=== PATIENT | female | born 1940 | race Caucasian/White ===

== ENCOUNTER 2018-08-04 03:38 | Inpatient (IN) | payer OTHER ==
[~2018-08-04] VITALS: Ht 160 cm; Wt 95.3 kg
[~2018-08-04 03:38] MED LIST: CITRACAL + D M1 EACH PO; COUMADIN2.5 M1 PO; DYAZIDE 37.5-21 EACH PO; ESTER-C 1,0001 EACH; FERROUS SULFAT325 M3 PO; FLONASE ALLERG9.9 ML; GAS RELIEF80 M1; KRILL OIL500 MG; LOSARTAN POTAS100 M1 PO; MULTIVITAMINS1 EAC9 PO; OMEPRAZOLE20 M2 PO; PERCOCET 5-3251 EACH PO; PRESERVISION A1 EAC1; RANITIDINE HCL150 MG PO; SYNTHROID150 MCG PO; VITAMIN D31000 UNI2 PO
--- NOTE | 2018-08-04 09:31 | Operative Report ---
Operative/Inv Procedure Report Surgery Date: 08/04/18 Name of Procedure: Left total knee arthroplasty Pre-Operative Diagnosis: Left knee primary osteoarthritis Post-Operative Diagnosis: Same Estimated Blood Loss: less than 50ml Surgeon/Traffic Representative: Sang GRAFF,Celestino Paniagua Anesthesia: block Implants: Marcus triathlon total knee system-size 5 femur, size 4 tibia, 11 mm cruciate retaining polyethylene, 31 patella Drains: None Specimens: Femoral, tibial, patellar bone Microbiology: Urine Tourniquet: 43 minutes Complications: None Condition: Stable Operative Indication: Patient is a 78-year-old woman with history of bilateral knee osteoarthritis. She has been treated conservatively for a long period of time. Unfortunately, her symptoms persistently increased to the point where they interfere with normal activities of daily living. Last year she underwent right total knee arthroplasty. She wished to proceed with total knee arthroplasty in the left. Risks benefits and expectations of the surgical procedure were discussed which included but were not limited to persistent knee pain, need for subsequent surgery, infection, DVT, injury to blood vessel or nerve, anesthesia risks Operative/Procedure Note Note: Patient was brought to the operating room and transferred to the operating table. Once under appropriate anesthesia the left lower extremity was prepped and draped in standard fashion. Preoperative IV antibiotics were given prophylactically. Leg was elevated exsanguinated tourniquet was inflated to 300 mm of pressure. A standard anterior incision was made for anticipated medial parapatellar approach to the knee. The incision was taken down sharply to the underlying retinaculum. A medial retinacular approach was used with a minimal extension to the quadricep tendon. Osteophytes were excised from the distal femur. Portion of the fat pad was excised. Dissection was taken around the medial corner of the knee to balance ligaments. Retractors were placed and the knee was flexed while the patella was subluxed. Used the drill to enter the intramedullary canal of distal femur for the intramedullary guide for the distal femoral cut. The cut was made at a 6 valgus orientation. Cut was made while protecting the soft tissues. The femur was then sized to a size 5. Size 5 cutting jig was pinned in place and the for bone cuts were made. I then turned my attention to the tibia. Remnants of the degenerative medial lateral meniscal tissues were excised. PCL was recessed for balancing purposes. I then placed the external tibial alignment guide in place to pin the cutting block in a neutral position from medial to lateral and reproducing patient's posterior slope based on preoperative templating and intraoperative measurements. Cutting block was pinned in place and the retractors were placed to protect the soft tissues medially laterally and posteriorly. The cut was made. I size a 4 tibia to a size 4. Trial reduction was done I was satisfied with the soft tissue balancing and the sizing of the components. I then prepared the patella by measuring cutting the appropriate thickness and replacing it with a size 31 patella. 3 lug holes were drilled as medially as possible. I then marked my rotation of the tibia and drilled my 2 lug holes for the femur. All trial and rotation was removed. I then finished preparation of the tibia with the tibial punch. Cement was being mixed on the back table as the knee was copiously irrigated and dried. The anterior chamfer bone of the distal femur was used to plug the intramedullary hole to minimize postoperative hemarthrosis and swelling. Once the cement was ready was applied to the dry clean bony surface of the tibia. The size 4 tibia was impacted in place and excess cement was removed with curette. Cement was applied to the dry clean bony surfaces of the distal femur and the size 5 femur was impacted in place and excess cement was removed with curette. The trial polyethylene was inserted which was an 11 mm polyethylene. The knee was taken out to full extension. Cement was applied to the dry clean bony surfaces of the patella. The size 31 patella was impacted in place and excess cement was removed with a knife. Once the cement hardened to the knee through range of motion. Small pieces of excess cement removed from the trochlear notch. I was satisfied with the stability with 11 mm. Full extension. Excellent mid flexion stability and full flexion to gravity. The patellofemoral tracking would be determined later after the tourniquet was deflated but it appeared to be very good prior to the tourniquet deflation. Copious irrigation followed. I was satisfied with 11 mm polyethylene and therefore a removed the trial component and copiously irrigated the tibial tray. I made sure there was no remaining soft tissue, bone fragments or cement fragments within the tibial tray and then impacted the definitive size 11 mm cruciate retaining polyethylene in place. The locking mechanism was confirmed. Again the knee was taken through a range of motion. The tourniquet was deflated after some irrigation. Again I was satisfied with the patellofemoral tracking. Hemostasis was obtained. I then closed the medial retinacular incision with a minimal extension of the quadricep tendon with interrupted #1 Vicryl sutures. Subcu tissues closed in 2 layers with 2-0 Vicryl and skin was closed with a running 3-0 Vicryl suture with the knee in flexion. Appropriate dressings were applied and patient was awakened and taken to recovery room in good condition. No intraoperative complications. Blood loss was less than 50 cc Discharge Disposition: PACU
[2018-08-04 12:00] VITALS: BP 130/80
--- NOTE | 2018-08-04 13:37 | PN- Orthopedic ---
Subjective Subjective: POC feeling well, in chair, lisset diet, no n/v/cp/sob. +uo via kauffman. pain well controlled Objective Vital Signs and I&Os Vital Signs Date Time Temp Pulse Resp B/P B/P Pulse O2 O2 Flow FiO2 Mean Ox Delivery Rate 08/04 1200 94.6 54 18 130/80 98 Room Air Physical Exam: GEN- NAD CARD- S1S2 PULM- CTAB ABD-soft nt EXT- feet warm, palp pedal pulses. lle dressed in feliberto- cdi, ice in place, calves soft nt, alps on. Assessment/Plan Assessment/Plan A- POD0 sp L TKR, stable w minimal postop pain P- PT, WBAT anticoagulation: coum 5 tonight, then per INR alps am labs diet as tolerated home meds prn pain meds dc kauffman in am dc planning Core Measures Venous Thromboembolism VTE Risk Factors Surgery No Mechanical VTE Prophylaxis d/t N/A MechProphylax Ordered No VTE Pharm Prophylaxis d/t NA PharmProphylax ordered
[2018-08-04 15:11] VITALS: BP 136/66
[2018-08-04 16:53] VITALS: BP 142/72
[2018-08-04 20:00] VITALS: BP 140/70
[2018-08-04 21:46] LABS: PTT 29 SEC (25-37)
[2018-08-05] VITALS: BP 138/68
[2018-08-05 03:57] VITALS: BP 142/78
--- NOTE | 2018-08-05 07:54 | PN- Orthopedic ---
See Addendum Subjective Subjective: No events overnight. Patient feeling well this am. Admits to minimal left knee pain, has not required pain medication. Tolerating her diet without nausea or emesis. Denies any chest pain or SOB. OOB with PT yesterday and ambulated the hallway. Denies any numbness or tingling. Denies any locking or grinding sensation. Objective Vital Signs and I&Os Vital Signs Date Time Temp Pulse Resp B/P B/P Pulse O2 O2 Flow FiO2 Mean Ox Delivery Rate 08/05 0357 98.7 70 20 142/78 96 Room Air 08/05 0000 97.8 69 20 138/68 96 Room Air 08/04 2000 97.8 63 16 140/70 93 08/04 1653 97.5 68 16 142/72 95 08/04 1511 95.0 64 18 136/66 95 08/04 1200 94.6 54 18 130/80 98 Room Air Intake & Output 08/05 0800 08/05 0000 08/04 1600 08/04 0800 08/04 0000 08/03 1600 Intake Total 892 690 5907.5 Output Total 1000 1025 400 Balance -200 -525 837.5 Intake, IV 600 300 637.5 Intake, Oral 200 200 600 Output, Urine 1000 1025 400 Patient 210 lb 199 lb Weight Weight Reported by Patient Measurement Method Physical Exam: Afebrile, VSS. General: Sitting in chair in NAD. Cardiac: RRR Pulmonary: CTAB LLE: Dressing c/d/i. No drainage noted. Motor and sensation grossly intact. Able to dorsiflex/plantarflex. No calf tenderness, negative Sandy's. Assessment/Plan Assessment/Plan A/P: 78 y/o female PO D # 1 s/p L TKR. Stable post operatively. - Continue diet as tolerated - Pain medication prn - [place] discontinued this am - monitor ability to void - Continue home medications - PT following - WBAT - DVT ppx - alps; Coumadin per INR - Follow up am labs - dc planning - will d/w Dr. Domínguez Core Measures Venous Thromboembolism VTE Risk Factors Surgery No Mechanical VTE Prophylaxis d/t N/A MechProphylax Ordered No VTE Pharm Prophylaxis d/t NA PharmProphylax ordered
[2018-08-05 07:55] VITALS: BP 118/74
[2018-08-05 08:15] LABS: PT 11.8 SEC (9.4-12.5)
[2018-08-05 08:20] LABS: ABSOLUTE BASOPHIL COUNT 0 /CUMM (0.0-0.2); ABSOLUTE EOSINOPHIL COUNT 0 /CUMM (0.0-0.7); ABSOLUTE GRANULOCYTE CT 4.9 /CUMM (1.4-6.5); ABSOLUTE LYMPH COUNT 1.1 /CUMM (1.2-3.4); ABSOLUTE MONOCYTE COUNT 0.8 /CUMM (0.10-0.60); BASOPHIL % 0.1 % (0.0-2.0); EOSINOPHIL % 0.2 % (0-5); GRANULOCYTE % 71.7 % (42.2-75.2); HEMATOCRIT 32.3 % (37-47); MEAN CORPUSCULAR HGB 32.5 PG (27.0-31.0); MEAN CORPUSCULAR HGB CONC 34.1 G/DL (33.0-37.0); MEAN CORPUSCULAR VOLUME 95.3 FL (81.0-99.0); MEAN PLATELET VOLUME 9.5 FL (7.4-10.4); PLATELET COUNT 144 /CUMM (130-400); RBC DISTRIBUTION WIDTH 14.8 % (11.5-14.5); RED BLOOD CELL CT 3.39 /CUMM (4.20-5.40); WHITE BLOOD CELL COUNT 6.9 /CUMM (4.8-10.8)
[2018-08-05 15:47] VITALS: BP 118/68
[2018-08-05 22:58] VITALS: BP 106/70
[2018-08-06 06:30] VITALS: BP 132/80
[2018-08-06 08:37] LABS: PT 13.1 SEC (9.4-12.5)
--- NOTE | 2018-08-06 08:55 | PN- Orthopedic ---
See Addendum Subjective Subjective: Patient sitting in chair, had some left knee pain overnight. Pain well controlled this morning with oral medication. Denies paresthesias. Has been ambulating with physical therapy, worked on stairs yesterday. Tolerating diet, voiding, had bowel movement yesterdaY. Denies chest pain, shortness of breath, fever or headache. Objective Vital Signs and I&Os Vital Signs Date Time Temp Pulse Resp B/P B/P Pulse O2 O2 Flow FiO2 Mean Ox Delivery Rate 08/06 630 97.8 75 18 132/80 96 Room Air 08/05 2258 97.8 64 18 106/70 96 08/05 211 64 106/70 08/05 1547 97.6 62 20 118/68 97 Intake & Output 08/06 0000 08/05 0000 Intake Total 137 228 0564 800 500 Output Total 500 1300 819 875 0116 1025 Balance -500 -1000 -510 1370 -200 -525 Intake, IV 600 600 300 Intake, Oral 895 974 3229 200 200 Number 1 0 Bowel Movements Output, Urine 500 1300 583 911 3901 1025 Patient 210 lb Weight Physical Exam: General- NAD Resperations- clear bialaterlly Cardiac-regular rate and rhythm Abdomen-soft nontender with positive bowel sounds Extremities-incision clean and dry, no drainage, no signs of infection. Thigh is soft with no erythema, minimal tenderness around incision. Clean dressing applied. Calves are soft bilaterally and non-tenderness. Distal sensory and motor function is intact. 2+ dorsalis pedis pulse bilaterally Current Medications: Current Medications Sig/Teagan Start time Last Medication Dose Route Stop Time Status Admin Acetaminophen 650 MG Q4P PRN 08/05 2015 AC 08/05 PO 2110 Celecoxib 400 MG DAILY 08/05 900 AC 08/05 PO 0807 Dextrose/Lactated 1,000 ML Q13H 08/04 1245 DC 08/04 Ringer's IV 2341 Docusate Sodium 100 MG BID PRN 08/04 945 AC PO Famotidine 20 MG BID 08/04 2105 AC 08/05 PO 2109 Levothyroxine Sodium 0.15 MG DAILY AC 08/05 07 AC 08/06 PO 0528 Losartan Potassium 100 MG 2100 08/05 2100 AC 08/05 PO 2109 Losartan Potassium 100 MG DAILY 08/05 0900 DC PO Morphine Sulfate 2 MG Q3P PRN 08/04 1245 AC IV Omeprazole 20 MG DAILY AC 08/05 0700 AC 08/06 PO 0527 Ondansetron HCl 4 MG Q6P PRN 08/04 1245 AC IV Oxycodone/ 1 TAB Q4P PRN 08/04 1245 AC 08/06 Acetaminophen PO 0155 Oxycodone/ 2 TAB Q4P PRN 08/04 1245 AC Acetaminophen PO Polyethylene Glycol 17 GM DAILY PRN 08/04 0945 AC PO Senna/Docusate Sodium 2 TAB AT BEDTIME NEED.. 08/04 1245 AC PO Triamterene/HCTZ 1 CAP DAILY 08/05 0900 AC 08/05 PO 0807 Warfarin Sodium 7.5 MG COUMADIN 1700 ONE 08/05 1700 DC 08/05 PO 08/05 1701 1635 Results Last 48 Hours of Labs: Laboratory Tests 08/06 08/05 08/04 0605 0616 2045 Chemistry Sodium (137 - 145 mmol/L) 140 Potassium (3.5 - 5.1 mmol/L) 4.1 Chloride (98 - 107 mmol/L) 105 Carbon Dioxide (22 - 30 mmol/L) 26 Anion Gap (5 - 16) 8 BUN (7 - 17 mg/dL) 21 H Creatinine (0.5 - 1.0 mg/dL) 0.6 Estimated GFR (>60 ml/min) > 60 BUN/Creatinine Ratio (7 - 25 %) 35.0 H Coagulation PT (9.4 - 12.5 SEC) 13.1 H 11.8 12.0 INR (0.90 - 1.19) 1.20 H 1.08 1.10 APTT (25 - 37 SEC) 29 Hematology CBC w Diff NO MAN DIFF REQ WBC (4.8 - 10.8 /CUMM) 6.9 RBC (4.20 - 5.40 /CUMM) 3.39 L Hgb (12.0 - 16.0 G/DL) 11.0 L Hct (37 - 47 %) 32.3 L MCV (81.0 - 99.0 FL) 95.3 MCH (27.0 - 31.0 PG) 32.5 H MCHC (33.0 - 37.0 G/DL) 34.1 RDW (11.5 - 14.5 %) 14.8 H Plt Count (130 - 400 /CUMM) 144 MPV (7.4 - 10.4 FL) 9.5 Gran % (42.2 - 75.2 %) 71.7 Lymphocytes % (20.5 - 51.1 %) 16.5 L Monocytes % (1.7 - 9.3 %) 11.5 H Eosinophils % (0 - 5 %) 0.2 Basophils % (0.0 - 2.0 %) 0.1 Absolute Granulocytes (1.4 - 6.5 /CUMM) 4.9 Absolute Lymphocytes (1.2 - 3.4 /CUMM) 1.1 L Absolute Monocytes (0.10 - 0.60 /CUMM) 0.8 H Absolute Eosinophils (0.0 - 0.7 /CUMM) 0 Absolute Basophils (0.0 - 0.2 /CUMM) 0 Assessment/Plan Assessment/Plan This is a 78-year-old female with history of hypertension and hypothyroidism status post left total knee arthroplasty postop day 2 in stable condition. Pain management PT- WBAT with rolling walker DVT PPX-Coumadin to be titrated for INR goal of 2-2.5 FU AM labs Regular diet Regular home medications Encourage IS DC planningpossibly home today with health services if cleared by physical therapy Core Measures Venous Thromboembolism VTE Risk Factors Surgery No Mechanical VTE Prophylaxis d/t N/A MechProphylax Ordered No VTE Pharm Prophylaxis d/t NA PharmProphylax ordered
--- NOTE | 2018-08-06 08:57 | Patient Discharge Instructions ---
Discharge Instructions General Discharge Information You were seen/treated for: Left knee osteoarthritis You had these procedures: Left total knee arthroplasty Watch for these problems: Fever over 100.4 Redness and swelling around wound Drainage from wound Chest pain or shortness of breath No bath, but you may shower: Yes Other wound care: Keep incision clean and dry Special Instructions: Daily dry dressing change He will be taking Coumadin every day for DVT prophylaxis, to prevent clots from forming in your legs which could potentially be life-threatening. He will need to get your blood drawn twice every week to titrate your Coumadin dose so that your INR is between 2-2.5. Diet Continue normal diet: Yes Activity Activity Limited to: Weight bear as tolerated (WITH ROLLING WALKER) Acute Coronary Syndrome Inclusion Criteria At DC or during hospital stay patient has or had the following: ACS DIAGNOSIS No Discharge Core Measures Meds if any: Prescribed or Continued at Discharge Meds if any: NOT Prescribed or Continued at Discharge Congestive Heart Failure Inclusion Criteria At DC or during hospital stay patient has or had the following: CHF DIAGNOSIS No Discharge Core Measures Meds if any: Prescribed or Continued at Discharge Meds if any: NOT Prescribed or Continued at Discharge Cerebrovascular accident Inclusion Criteria At DC or during hospital stay patient has or had the following: CVA/TIA Diagnosis No Discharge Core Measures Meds if any: Prescribed or Continued at Discharge Meds if any: NOT Prescribed or Continued at Discharge Venous thromboembolism Inclusion Criteria VTE Diagnosis No VTE Type NONE VTE Confirmed by (Test) NONE Discharge Core Measures - Per Current guidelines, there needs to be overlap - treatment for the first 5 days of Warfarin therapy. - If discharged on Warfarin prior to 5 days of - overlap therapy, the patient will need to be - assessed for post discharge needs including - *Post discharge parental anticoagulation - *Warfarin and/or parental anticoagulation education - *Follow up date to check INR post discharge At least 5 days overlap therapy as Inpatient No Meds if any: Prescribed or Continued at Discharge Note: Overlap Therapy is Warfarin and Anticoagulant Meds if any: NOT Prescribed or Continued at Discharge
[2018-08-06] MEDS ORDERED: PERCOCET 5-3251 EACH PO (09:02)
[2018-08-06] MEDS ORDERED: COLACE100 M1 PO (09:02)
[2018-08-06] MEDS ORDERED: MIRALAX17 G1 PO (09:02)
[2018-08-06] MEDS ORDERED: COUMADIN2.5 M1 PO (09:02)
[2018-08-06] MEDS ORDERED: CELEBREX400 M1 PO (12:46)
--- NOTE | 2018-08-06 18:31 | Surg Short-stay <48hrs Dis Sum ---
Visit Information Visit Dates Admission Date: 08/04/18 Discharge Date: 08/06/18 Surgical Short Stay DC Summary Admission Diagnosis: Left knee osteoarthritis Final Diagnosis: Same Procedure(s): Left total knee arthroplasty Summary/Significant Findings: Patient presented for an elective left total knee arthroplasty, patient tolerated procedure well. Postoperatively she was placed on Coumadin for DVT prophylaxis, she voided spontaneously, tolerated a regular diet, and was ambulate him with physical therapy using a rolling walker. Her dressing was changed on postop day 2 there were no signs of infection. She was cleared for discharge to home with health services. Discharge instructions were reviewed with the patient and she understood. Condition at Discharge: Good, stable Discharge Disposition: home health services Discharge instructions provided to patient/family: Yes Post discharge follow-up plan: Plan is to follow-up with Siva Domínguez MD in the office in 2 weeks
== END 2018-08-06 13:14 | disposition home health service (06) | DRG 470 ==
LOC: SDA 03:38 → 2NA 03:38 → ENRESERV 10:18 → ENTRNSPT 10:41 → EDTRNSPTSTS 11:12 → EDTRNSPT 11:12 → 2NA 11:25 → CMPTRNSPT 11:37 → ENPENDDIS 08-06 09:40 → ENTRNSPT 08-06 12:12 → EDTRNSPT 08-06 13:00 → EDTRNSPTSTS 08-06 13:00 → 2NA 08-06 13:14 → CMPTRNSPT 08-06 13:24
PROVIDERS: Physician Assistant Surgical
PROC: 3E0T3BZ Introduction of Anesthetic Agent into Peripheral Nerves and Plexi, Percutaneous Approach (ICD-10-PCS; principal; 2018-08-04)
PROC: 0SRD0J9 Replacement of Left Knee Joint with Synthetic Substitute, Cemented, Open Approach (ICD-10-PCS; principal; 2018-08-04)
DX: M17.12 Unilateral primary osteoarthritis, left knee (principal); I10 Essential (primary) hypertension; E78.5 Hyperlipidemia, unspecified; E03.9 Hypothyroidism, unspecified; Z90.49 Acquired absence of other specified parts of digestive tract; Z96.651 Presence of right artificial knee joint
CPT/HCPCS: 2NAP; 36592; 82436; 87086; 88305; 97110-GO; 97116-GO; 97161-GP; C1713; C9290; J0131; J1100; J2405; J3370; J3490; J7040; Q2036